=== PATIENT | female | born 1975 | race Two or more races ===

== ENCOUNTER 2024-02-24 14:45 | Emergency (ER) | payer MEDICAID, SELFPAY ==
[2024-02-24 14:53] VITALS: BP 150/96; PULSE 89; RESP 18; TEMP 36.6; O2SAT 100
[2024-02-24 14:54] VITALS: BMI 37.8
--- NOTE | 2024-02-24 15:00 | XR_ITS ---
Examination: PA lateral chest 2 views Technique: Upright PA lateral chest 2 views Exam date and time: February 24, 2024 1512 hrs. Indications: Coughing beginning one week ago. Findings: Normal heart size Lungs are clear. The osseous structures are intact Impression: No active disease
[2024-02-24] MEDS: DiphenhydrAMINE 25 MG CAPSULE 50 MG PO (15:03)
--- NOTE | 2024-02-24 17:02 | PD.EDURI ---
Upper Respiratory Inf. RME/HPI General Chief Complaint: Dental/Oral/Throat Stated Complaint: trouble swallowing, throat swelling Time Seen by Provider: 02/24/24 14:48 Arrival date/time: 02/24/24 14:45 48-year-old female currently on antibiotics for URI presents to the emergency department complaints of difficulty swallowing her phlegm patient reports it is very thick and is making her nervous. Patient appears to be having anxiety Limitations: no limitations Related Data Home Medications ?Medication ?Instructions ?Recorded ?Confirmed metformin 500 mg tablet 500 mg PO BID 07/24/17 08/14/17 Previous Rx's ?Medication ?Instructions ?Recorded Vitamin * 1 tab PO QDAY #30 tabs 10/17/14 hydrocodone 5 mg-acetaminophen 325 1 tab PO Q6H PRN pain #30 tabs 07/27/17 mg tablet ([place]) ibuprofen 800 mg tablet 800 mg PO Q8HR PRN Pain Scale 4-6 07/27/17 (Moderate #30 tabs sulfamethoxazole 800 1 tab PO Q12H #20 tabs 08/14/17 mg-trimethoprim 160 mg tablet (Bactrim DS) azithromycin 500 mg tablet See Rx Instructions PO .COMPLEX #6 02/24/24 tabs diphenhydramine HCl 25 mg capsule 25 mg PO Q8H PRN allergic symptoms 02/24/24 (Benadryl) #30 caps Allergies Allergy/AdvReac Type Severity Reaction Status Date / Time Penicillins Allergy Unknown Verified 02/24/24 14:48 Review of Systems Review of Systems Systems Reviewed: All systems reviewed, normal except as documented Constitutional Constitutional: Reports system reviewed and no additional complaints, except as documented, Denies fever(s) and Denies headache(s) Eyes Eyes: Reports system reviewed and no additional complaints, except as documented and Denies blurry vision ENT Ears, Nose, Mouth, and Throat: Reports system reviewed and no additional complaints, except as documented, Denies headache(s), Reports nasal congestion and Reports nasal discharge Cardiovascular Cardiovascular: Reports system reviewed and no additional complaints, except as documented, Denies chest pain and Denies dyspnea Respiratory Respiratory: Reports system reviewed and no additional complaints, except as documented, Denies chest congestion, Denies cough and Denies dyspnea Gastrointestinal Gastrointestinal: Reports system reviewed and no additional complaints, except as documented and Denies abdominal pain Integumentary/Breasts Skin/Breast: Reports system reviewed and no additional complaints, except as documented and Denies rash Neurologic Neurologic: Reports system reviewed and no additional complaints, except as documented, Reports as per HPI and Denies headache(s) Psychiatric Psychiatric: Reports system reviewed and no additional complaints, except as documented and Reports anxiety Past Medical History Past Medical History NEUROLOGIC: Negative Neurological Disorders CARDIAC: Negative Cardiac Disorders ED Exam General Limitations: Present no limitations General appearance: Present alert and in no apparent distress Head Head exam: Present atraumatic, normocephalic and normal inspection Eye Eye exam: Present normal appearance, PERRL and EOMI; Absent conjunctival injection ENT ENT exam: Present normal exam, normal oropharynx and mucous membranes moist Neck Neck exam: Present normal inspection, full ROM and trachea midline Chest Chest inspection: Present normal inspection and symmetric chest wall rise Respiratory Respiratory exam: Present normal lung sounds bilaterally; Absent respiratory distress, wheezes, stridor or accessory muscle use Cardiovascular Cardiovascular exam: Present regular rate, normal rhythm and normal heart sounds Abdominal Exam Abdominal exam: Present soft and normal bowel sounds; Absent distention, tenderness, guarding, rebound or rigidity Extremities Exam Extremities exam: Present normal inspection and full ROM Back Exam Back exam: Present normal inspection and full ROM Neurological Exam Neurological exam: Present alert, oriented X3, CN II-XII intact, normal gait and reflexes normal; Absent motor sensory deficit Psychiatric Psychiatric exam: Present anxious; Absent flat affect, manic, homicidal ideation or suicidal ideation Skin Skin exam: Present warm, dry, intact and normal color; Absent rash Course Quality Measures none Orders Category Date Time Status Bedside Influenza A&B Antigen Test NOW Care 02/24/24 15:00 Completed XR chest 2V Stat Exams 02/24/24 15:00 Completed DiphenhydrAMINE [Benadryl] Med 02/24/24 15:00 Discontinued 50 mg PO X1 ONE Vital Signs Vital signs: Vital Signs Temperature 98 F 02/24/24 14:53 Pulse Rate 89 02/24/24 14:53 Respiratory Rate 18 02/24/24 14:53 Blood Pressure 150/96 H 02/24/24 14:53 Pulse Oximetry (%) 100 02/24/24 14:53 Oxygen Delivery Method Room Air 02/24/24 14:53 O2 saturation 100% room air within normal limits Upper Respiratory Infection MDM Narrative MDM Narrative:: 48-year-old female currently on antibiotics for URI presents to the emergency department complaints of difficulty swallowing her phlegm patient reports it is very thick and is making her nervous. Patient appears to be having anxiety On exam patient reports no chest pain or shortness of breath patient reports her concern is that she has difficulty swallowing her phlegm On exam patient appears to be very anxious patient given Benadryl here which did calm her down and she does report helped with her secretions Chest x-ray obtained no acute pneumonic infiltrates noted At time of reevaluation patient's anxiety has significantly improved and reports she feels better Patient discharged home in no distress to follow-up with primary care doctor in the next 24 to 48 hours and for any worsening symptoms to return to the ER immediately Patient data External records reviewed:: [facility] previous records Clinical information provided by:: patient Social determinants that could affect healthcare access:: none Patient has the following chronic illnesses:: See history How is presenting disease/condition affected by chronic disease/condition?: exacerbated by Evaluation data The following diagnostics were reviewed and interpreted by me:: lab results and radiology exam(s) Lab and/or radiology exams considered but not ordered:: Labs and radiology obtained Interpretation Summary: Reviewed by me Medications / Prescriptions Medications or Prescriptions considered but not ordered:: Given Medication administrations:: Medication Administration History Discontinued Medications Diphenhydramine HCl (Diphenhydramine 25 Mg Capsule) 50 mg PO X1 ONE Stop: 02/24/24 15:01 Last Admin: 02/24/24 15:03 Dose: 50 mg Documented By: LUC Given Consultations Consultation(s) initiated? (list below): No Diagnosis Upper Respiratory Differential Diagnosis: upper respiratory infection, sinusitis and viral infection Most likely diagnosis given after review of the tests above:: URI Admission Indicated Admission indicated?: not indicated Admission Request Was there a request for admission?: No Disposition Plan Disposition Plan: Discharge Discharge Attestation Discharge Attestation: The patient and all family members were given an opportunity to ask questions and understood the discharge instructions. Discharge instructions specifically effects, indications for sooner follow up or return to the emergency department, and the expected course of current diagnosis. Patient condition: Stable Discharge Plan Plan Patient Disposition: HOME (Self Care) Disposition Comment: Stable Prescriptions/Referrals Prescriptions/Med Rec: New diphenhydramine HCl [Benadryl] 25 mg capsule 25 mg PO Q8H PRN (Reason: allergic symptoms) Qty: 30 0RF azithromycin 500 mg tablet See Rx Instructions .ROUTE .COMPLEX Qty: 6 0RF Rx Instructions: take 500 mg today (day 1), then 250 mg for 4 days (days 2-5) No Action Vitamin * 1 EACH tablet 1 tab PO QDAY Qty: 30 11RF metformin 500 mg Tablet 500 mg PO BID ibuprofen 800 mg tablet 800 mg PO Q8HR PRN (Reason: Pain Scale 4-6 (Moderate) Qty: 30 2RF hydrocodone-acetaminophen [[place]] 5-325 mg tablet 1 tab PO Q6H MDD 8 PRN (Reason: pain) Qty: 30 0RF sulfamethoxazole-trimethoprim [Bactrim DS] 800-160 mg tablet 1 tab PO Q12H Qty: 20 0RF Referrals: Rafael Pierre PA-C [Primary Care Provider] - 02/25/24 Problem List Clinical Impression: Sinusitis Patient/Caregiver Discharge Instructions Education Materials: Chronic Sinusitis Additional Instructions: Please follow up with your primary care doctor in the next 24-48hrs for any worsening symptoms return here immediately Print Language: Hebrew Stand Alone Forms: Elena Award Info., Work/School Release, Patient Portal Info Letter PA/HEIDY Supervising Physician PA/HEIDY Supervising Physician: Dr. andrews
== END 2024-02-24 17:36 | disposition home or self-care (01) ==
PROVIDERS: Emergency Provider Emergency Medicine; PCP Family Medicine
DX: J32.9 Chronic sinusitis, unspecified (principal)
CPT/HCPCS: 71046; 87400; 99283; A9270

== ENCOUNTER → 2024-08-31 | Outpatient (CLI) | payer MEDICAID, SELFPAY ==
--- NOTE | 2024-08-31 09:00 | XR_ITS ---
Examination: Upper GI series with KUB Esophagram standard Fluoroscopy 27 spot fluoroscopic films of the esophagus and stomach Date and time: August 31, 2024 0944 hours INDICATIONS: Difficulty swallowing 7 months TECHNIQUE AND FINDINGS: Molded Candles Wicker film nonobstructive bowel gas pattern Primary peristaltic esophageal waves Secondary esophageal contractions Mild intermittent gastroesophageal reflux No gastric mass deformity or ulceration Duodenal bulb expands symmetrically in the suite does not appear remarkable IMPRESSION: Mild intermittent gastroesophageal reflux. There is no stricture at the gastroesophageal junction Fluoroscopy 0.09 minute 27 spot fluoroscopic films of the esophagus and stomach
== END | disposition home or self-care (01) ==
LOC: CDIM 09:22
PROVIDERS: Referring Provider Nurse Practitioner Family; Visit Provider Nurse Practitioner Family
DX: K21.9 Gastro-esophageal reflux disease without esophagitis (principal)
CPT/HCPCS: 74240; A4649